=== PATIENT | female | born 1975 | race Two or more races ===

== ENCOUNTER 2024-11-08 06:13 | Day surgery (SDC) | payer BC ==
[2024-11-02 14:16] LABS: Hematocrit 43.2 % (36.0-46.0); Hemoglobin 14.6 g/dL (12.2-16.2); Mean Corpuscular Hemoglobin 30.2 pg (28.0-32.0); Mean Corpuscular Volume 89.5 fL (80.0-100.0); Nucleated Red Blood Cells % 0.0 %
[2024-11-02 14:25] LABS: Albumin 4.8 g/dL (3.2-4.8); Anion Gap 9 (5-15); BUN/Creatinine Ratio 14.8 (10.0-20.0); Blood Urea Nitrogen 20 mg/dL (9-23); Calcium 10.1 mg/dL (8.7-10.4); Carbon Dioxide 28 mmol/L (20-31); Chloride 103 mmol/L (98-107); Potassium 4.0 mmol/L (3.5-5.1); Sodium 140 mmol/L (136-145); Total Protein 6.8 g/dL (5.7-8.2); Urine Protein, UAD 1+ (Negative)
[2024-11-02 14:26] LABS: Bilirubin, Total 0.6 mg/dL (0.2-1.0)
[2024-11-02 14:31] LABS: Alanine Aminotransferase 42 U/L (7-40); Alkaline Phosphatase 32 U/L (46-116); Glucose 202 mg/dL (74-106); INR 0.94 (0.9-1.15); Partial Thromboplastin Time 23.3 SEC (24.5-34.5); Prothrombin Time 10.0 sec (9.3-11.8)
[~2024-11-08] VITALS: Ht 172.7 cm; Wt 68.0 kg
[~2024-11-08 06:13] MED LIST: ATOR-47 PO; FENO145T27 PO; GLIM4TAB42 PO; LISI40TA16 PO; MAGN400T40 PO; METF-372 PO; MULT1TAB95 PO; NAPR220C PO; [UNRECOGNIZED DRUG - CODE] PO
[2024-11-08] MEDS ORDERED: ROCURONIUM 10MG/ML 10ML VIAL IV ONE (06:14)
[2024-11-08] MEDS ORDERED: fentaNYL CITRATE 100 MCG/2 ML VL ONE ×2 (07:20→07:52)
[2024-11-08] MEDS ORDERED: HYDROmorphone HCL 2 MG/ML VL/or syr ONE (07:20)
[2024-11-08] MEDS ORDERED: KETAMINE 50mg/ML 1ml syringe ONE (07:20)
[2024-11-08] MEDS ORDERED: MIDAZOLAM HCL 2MG/2ML 2ml VIAL (1mg/ml) ONE (07:20)
[2024-11-08] MEDS ORDERED: GLYCOPYRROLATE 0.2 MG/ML 1ML VIAL ONE (07:21)
[2024-11-08] MEDS ORDERED: KETOROLAC TROMETH 30 MG/ML 1ML VIAL ONE (07:21)
[2024-11-08] MEDS ORDERED: PROPOFOL 10 MG/ML 20 ML IV ONE (07:21)
[2024-11-08] MEDS ORDERED: LIDOCAINE 2% (LOCAL ANESTH.) PF 5ml SDV ONE (07:21)
[2024-11-08] MEDS ORDERED: ONDANSETRON HCL 4 MG/2 ML VIAL ONE (07:21)
[2024-11-08] MEDS: IOHEXOL 300 MG/ML 100ML BOTTLE IJ ONE (07:24)
[2024-11-08] MEDS: CIPROFLOXACIN 400MG/200ML 200 ML IV ONE (08:10)
[2024-11-08] MEDS: ACETAMINOPHEN IV 100 ML IV ONE (08:49)
[2024-11-08 09:13] VITALS: PULSE 95; RESP 14; TEMP 97.2; O2SAT 96
[2024-11-08] MEDS: ACCU-CHEK COMFORT CURVE STRIP VI ONE (09:15)
[2024-11-08 09:40] VITALS: PULSE 93; RESP 13; O2SAT 98
--- NOTE | 2024-11-08 10:15 | DVHNC2 ---
Procedure - OPERATIVE REPORT Pre-op. Diagnosis: Kidney Stone -Left- residual fragments after ESWL on 09/20/24 Left ureteral stent Renal Stone- right 1.3 cm Post-op. Diagnosis: Same as pre-op diagnosis Operation: Left ureteroscopy/pyeloscopy, laser lithotripsy with renal evacuation Cystoscopy with left ureteral stent removal Extracorporeal Shockwave Lithotripsy- right 1.3 cm lower pole stone Cystoscopy with right Ureteral stent placement Anesthesia: General Indications: Patient with large 1.4 cm left UPJ stone, impacted, s/p ESWL with stent placement 09/20/24. She has 1.3 cm right lower pole renal stone. She is here to undergo left URSLL with CVAC and right ESWL with stent placement. The indications, risks, complications, alternatives and benefits were discussed. All questions were encouraged and answered. Patient is aware of risks/complications including but not limited to infection, bleeding, persistent pain, possible ureteral injury/ureteral stricture requiring additional surgical management, urethral injury, urethral stricture and meatal stenosis. Details of Procedure: After obtaining the consent, patient was taken to OR suite and underwent general anesthesia. Preop antibiotic was given. Timeout was performed and deemed to be correct. With the patient positioned in the lithotomy, the area of the gen marce prepped and draped in usual sterile fashion. 22 F Cystoscope was used to access the urethra and bladder. The left ureteral stent was grasped and removed. A sensor tip guide wire was advanced through the scope into the left ureter all the way to the left collecting system under fluoroscopic control. I advanced 12x14 Fr 36 cm access sheet over the working wire all the way to the proximal ureter under fluoroscopy control, then the inner sheet and the working wire was removed. The Digital flexible ureteroscope (CVAC) was advanced through the access sheet. The stones were visualized. Now using a 200 micron laser fiber the stone was blasted into small fragments and suctioned out while in dusting mode. Ureteroscope was then removed along with uretreal sheath. Cystoscope was used to access the bladder and the right ureteral orifice was cannulated with guidewire. 5F x 24cm PL ureteral stent was placed and bladder was decompressed. The patient was repositioned on the lithotripsy table. Using fluoroscopy the rig ht lower pole renal stone was localized onto F2 Focus. Starting at low energy levels, shockwave treatment was commenced. The energy level was gradually increased and stone was fragmented. The patient was then taken off the lithotripsy table and sent to recovery room in stable condition. Specimens: renal stone fragments Complications: None Findings: Stone Laterality: Right lower pole stone, 1.3 cm Shocks Delivered: 2400 Max Power settin Fragmentation Quality: Well Ureteral stent size & lenght 5F x [address] ureteral stent for right side Left proximal ureteral stone fragments and renal stone fragments dusted with Thulium laser and suctioned out with CVAV. EBL: minimal Notes: 5 [address] x [address] ureteral stent - right RICHELLE TOBIN MD Nov 08, 2024 10:14
[2024-11-08] MEDS: HYDROmorphone HCL 2 MG/ML VL/or syr IV PRN (10:16)
--- NOTE | 2024-11-08 10:16 | DVHDS2 ---
New Physician D'charge PN Admitting Diagnosis Admitting Diagnosis Bilateral renal stones Left ureteral stent Discharge Diagnosis same Operations or Procedures Right ESWL with stent placement Left URSLL with CVAC and renal evacuation Reason(s) For Hospitalization Surgery Treatment Plan Discharge Condition of Discharge Fair Disposition Home Discharge Instructions Diet: Regular Activity: Light activity Activity comment: as tolerated Medications: given Follow Up Care Follow Up/Referral: 2 weeks with [facility] Discharge Statement: "Patient was advised to return to the ER or call 911 if any headaches, dizziness, shortness of breath, chest pain, abdominal pain, bleeding, fevers, or worsening of medical condition. Patient was counseled about treatment plan, medications, possible side effects, patientverbalized understanding. All questions were answered to the best of my ability. This discharge took greater then 30 minutes in planning, reviewing documentation, counseling the patient, and discussing with other team members." RICHELLE TOBIN MD Nov 08, 2024 10:16
[2024-11-08] MEDS: OXYBUTYNIN CHL 5 MG TAB PO ONE (10:25)
[2024-11-08] MEDS: OXYBUTYNIN CHL 5 MG TAB ONE (10:35)
[2024-11-08] MEDS: ONDANSETRON HCL 4 MG/2 ML VIAL IV ONE (10:41)
[2024-11-08] MEDS ORDERED: fentaNYL CITRATE 100 MCG/2 ML VL IV PRN (10:45)
[2024-11-08] MEDS: METOCLOPRAMIDE HCL 5MG/ml INJ 2ml VIAL IV ONE (11:12)
[2024-11-08] MEDS: FAMOTIDINE (10MG/ML) 2ML VL IV ONE ×2 (11:12→11:13)
[2024-11-08] MEDS: METOCLOPRAMIDE HCL 5MG/ml INJ 2ml VIAL ONE (11:13)
[2024-11-08 12:00] VITALS: BP 120/62; PULSE 106; RESP 17; O2SAT 95
== END 2024-11-09 12:19 | disposition home or self-care (01) ==
LOC: SUR 06:13
PROVIDERS: ATTEND Urology
DX: N20.0 Calculus of kidney (principal); I10 Essential (primary) hypertension; E11.9 Type 2 diabetes mellitus without complications; E03.9 Hypothyroidism, unspecified; E78.00 Pure hypercholesterolemia, unspecified; Z98.891 History of uterine scar from previous surgery; Z98.890 Other specified postprocedural states; Z79.84 Long term (current) use of oral hypoglycemic drugs; Z79.899 Other long term (current) drug therapy; Z87.891 Personal history of nicotine dependence
CPT/HCPCS: 36415; 50590; 52356; 80053; 81001; 82360; 82962; 84702; 85025; 85610; 85730; 87086; 88300; C1769; C1894; C2617; J0744; J1100; J1171; J1885; J2003; J2250; J2405; J2704; J2765; J3010; J3490; J7030; J7040; J0131

== ENCOUNTER → 2024-11-29 | Day surgery (SDC) | payer BC ==
[2024-11-24 10:52] LABS: Hematocrit 43.9 % (36.0-46.0); Hemoglobin 14.9 g/dL (12.2-16.2); Mean Corpuscular Hemoglobin 30.2 pg (28.0-32.0); Mean Corpuscular Volume 89.0 fL (80.0-100.0); Nucleated Red Blood Cells % 0.1 %
[2024-11-24 11:07] LABS: INR 0.95 (0.9-1.15); Partial Thromboplastin Time 23.9 SEC (24.5-34.5); Prothrombin Time 10.1 sec (9.3-11.8)
[2024-11-24 11:18] LABS: Urine Protein, UAD 1+ (Negative)
[2024-11-24 11:29] LABS: Alanine Aminotransferase 38 U/L (7-40); Anion Gap 10 (5-15); BUN/Creatinine Ratio 16.3 (10.0-20.0); Bilirubin, Total 0.6 mg/dL (0.2-1.0); Blood Urea Nitrogen 23 mg/dL (9-23); Carbon Dioxide 28 mmol/L (20-31); Chloride 102 mmol/L (98-107); Glucose 92 mg/dL (74-106); Sodium 140 mmol/L (136-145); Total Protein 7.1 g/dL (5.7-8.2)
[2024-11-24 11:30] LABS: Albumin 5.1 g/dL (3.2-4.8); Alkaline Phosphatase 32 U/L (46-116); Calcium 10.8 mg/dL (8.7-10.4); Potassium 3.5 mmol/L (3.5-5.1)
[~2024-11-29] VITALS: Ht 172.7 cm; Wt 68.0 kg
[~2024-11-29] MED LIST changes: +LIDOCAINE 1% INJ PF 5ML AMP ONE; +MIDAZOLAM HCL 2MG/2ML 2ml VIAL (1mg/ml) IV PRN; +MIDAZOLAM HCL 2MG/2ML 2ml VIAL (1mg/ml) ONE; +ONDANSETRON HCL 4 MG/2 ML VIAL IV ONE; +ONDANSETRON HCL 4 MG/2 ML VIAL ONE; +PHENYLEPHRINE HCL 10 MG/ML VL ONE; +PROPOFOL 10 MG/ML 20 ML IV ONE; +fentaNYL CITRATE 100 MCG/2 ML VL ONE; +hydrALAZINE HCL 20 MG/ML VL IV PRN
--- NOTE | 2024-11-29 08:03 | DVHNC2 ---
Procedure - OPERATIVE REPORT Pre-op. Diagnosis: Kidney Stone - right Right ureteral stent, in situ Post-op. Diagnosis: Same as pre-op diagnosis Operation: Right ureteroscopy/pyeloscopy, laser lithotripsy with renal evacuation Cystoscopy with left ureteral stent removal Anesthesia: General Indications: Patient with residual 1.3 cm kidney stone s/p lithotripsy and indwelling ureteral stent The indications, risks, complications, alternatives and benefits were discussed. All questions were encouraged and answered. Patient is aware of risks/complications including but not limited to infection, bleeding, persistent pain, possible ureteral injury/ureteral stricture requiring additional surgical management, urethral injury, urethral stricture and meatal stenosis. Details of Procedure: After obtaining the consent, patient was taken to OR suite and underwent general anesthesia. Preop antibiotic was given. Timeout was performed and deemed to be correct. With the patient positioned in the lithotomy, the area of the genitalia prepped and draped in usual sterile fashion. 22 F Cystoscope was used to access the urethra and bladder. The right ureteral stent was grasped and removed. A sensor tip guide wire was advanced through the scope into the left ureter all the way to the collecting system under fluoroscopic control. I adv anced Navigator ureteral access sheet over the working wire all the way to the proximal ureter under fluoroscopy control, then the inner sheet and the working wire was removed. The Digital flexible ureteroscope was advanced through the access sheet. The stones were visualized. Now using a 270 micron laser fiber the stone was blasted into small fragments and suctioned out while in dusting mode. Ureteroscope was then removed . Patient was placed in supine position and awakened. He was transferred to in stable condition. Specimens: renal stone fragments Complications: None RICHELLE TOBIN MD Nov 29, 2024 08:03
--- NOTE | 2024-11-29 08:05 | DVHDS2 ---
New Physician D'charge PN Admitting Diagnosis Admitting Diagnosis Right nephrolithiasis Right indwelling ureteral stent Discharge Diagnosis Same Operations or Procedures Right ureteroscope epic laser lithotripsy with renal evacuation (CVA C) Reason(s) For Hospitalization Surgery Treatment Plan Discharge Condition of Discharge Fair Disposition Home Discharge Instructions Diet: Regular Activity: Light activity Activity comment: As tolerated Medications: Given Follow Up Care Follow Up/Referral: [facility] [place] [facility] follow up in Two weeks with [facility] Discharge Statement: "Patient was advised to return to the ER or call 911 if any headaches, dizziness, shortness of breath, chest pain, abdominal pain, bleeding, fevers, or worsening of medical condition. Patient was counseled about treatment plan, medications, possible side effects, patientverbalized understanding. All questions were answered to the best of my ability. This discharge took greater then 30 minutes in planning, reviewing documentation, counseling the patient, and discussing with other team members." RICHELLE TOBIN MD Nov 29, 2024 08:04
[2024-11-29] MEDS: CIPROFLOXACIN 400MG/200ML 200 ML IV ONE (08:20)
[2024-11-29] MEDS: IOHEXOL 300 MG/ML 100ML BOTTLE IJ ONE (08:44)
[2024-11-29 09:30] VITALS: PULSE 86; RESP 17; TEMP 97.2; O2SAT 100
[2024-11-29 10:15] VITALS: PULSE 85; RESP 14; O2SAT 97
[2024-11-29] MEDS: HYDROmorphone HCL 2 MG/ML VL/or syr IV PRN (10:20)
[2024-11-29] MEDS: KETOROLAC TROMETH 30 MG/ML 1ML VIAL IV ONE (10:29)
--- NOTE | 2024-11-29 10:33 | DVH ---
C-ARM FLUOROSCOPY: PROCEDURE: right ureteroscopic lithotripsy FLUOROSCOPY TIME: 51.7 DAP: 8.42 mgy FINDINGS: Spot intraoperative C arm radiographs demonstrating right ureteroscopic lithotripsy.. IMPRESSION: Please refer to surgical report for detailed findings.
--- NOTE | 2024-11-29 10:33 | DVH ---
C-ARM FLUOROSCOPY: PROCEDURE: right ureteroscopic lithotripsy FLUOROSCOPY TIME: 51.7 DAP: 8.42 mgy FINDINGS: Spot intraoperative C arm radiographs demonstrating right ureteroscopic lithotripsy.. IMPRESSION: Please refer to surgical report for detailed findings.
[2024-11-29] MEDS: HYDROmorphone HCL 2 MG/ML VL/or syr ONE (10:34)
[2024-11-29] MEDS: ACCU-CHEK COMFORT CURVE STRIP VI ONE (11:10)
[2024-11-29] MEDS: MORPHINE SULFATE 4 MG/ML SYR/VIAL IV PRN (11:11)
[2024-11-29 11:30] VITALS: BP 122/65; PULSE 91; RESP 22; O2SAT 98
== END | disposition home or self-care (01) ==
LOC: SUR 06:44
PROVIDERS: ATTEND Urology
DX: N20.0 Calculus of kidney (principal); I12.9 Hypertensive chronic kidney disease with stage 1 through stage 4 chronic kidney disease, or unspecified chronic kidney disease; E11.22 Type 2 diabetes mellitus with diabetic chronic kidney disease; N18.2 Chronic kidney disease, stage 2 (mild); E03.9 Hypothyroidism, unspecified; E78.00 Pure hypercholesterolemia, unspecified; Z98.891 History of uterine scar from previous surgery; Z98.890 Other specified postprocedural states
CPT/HCPCS: 36415; 52353; 74018; 80053; 81001; 82360; 82962; 84702; 85025; 85610; 85730; 87086; 88300; C1894; J0744; J1100; J1171; J1885; J2250; J2270; J2371; J2405; J2704; J3010; Q9967; 76000